=== PATIENT | female | born 1990 | race African-American/Black ===

== ENCOUNTER 2021-06-21 00:49 | Emergency (ER) | payer MEDICAID, OTHER ==
[~2021-06-21] VITALS: Ht 167.6 cm; Wt 75.7 kg
[2021-06-21 00:51] VITALS: BP 117/70
== END 2021-06-21 04:01 | disposition left against medical advice (07) ==
LOC: EDBD 00:52 → ER 00:52
DX: M54.59 Other low back pain (principal); Z53.21 Procedure and treatment not carried out due to patient leaving prior to being seen by health care provider; V49.59XA Passenger injured in collision with other motor vehicles in traffic accident, initial encounter; Y93.89 Activity, other specified; Y92.410 Unspecified street and highway as the place of occurrence of the external cause; Y99.8 Other external cause status